=== PATIENT | female | born 1965 | race Caucasian/White ===

== ENCOUNTER 2023-01-14 08:27 | Outpatient (CLI) | payer OTHER, SELFPAY ==
[2023-01-14 09:37] LABS: Albumin* 4.4 g/dL (3.3-5.0)
[2023-01-14 09:38] LABS: Chloride* 107 mmol/L (96-114); Potassium* 3.9 mmol/L (3.6-5.1); Sodium* 143 mmol/L (135-149)
[2023-01-14 09:40] LABS: Carbon Dioxide* 28 mmol/L (20-32); Cholesterol* 281 mg/dL (90-199); Creatinine* 0.5 mg/dL (0.5-1.5); Estimated Glomerular Filt Rate 109 ml/min
[2023-01-14 09:41] LABS: Alanine Aminotransferase* 15 U/L (4-35); Alkaline Phosphatase* 74 U/L (40-150); Aspartate Amino Transferase* 18 U/L (12-35); Bilirubin Total* 0.5 mg/dL (0.1-1.5); Blood Urea Nitrogen* 22 mg/dL (7-30); Calcium* 9.3 mg/dL (8.4-10.6); Glucose* 113 mg/dL (60-115); HDL Cholesterol* 64 mg/dL (>=50); LDL Cholesterol Calculated 198 mg/dL (<100); Total Protein* 7.3 g/dL (6.0-8.3); Triglycerides* 95 mg/dL (40-149)
== END 2023-01-14 08:28 | disposition home or self-care (01) ==
PROVIDERS: PCP Family Medicine; Visit Provider Family Medicine
DX: R60.0 Localized edema (principal); E66.9 Obesity, unspecified; R53.83 Other fatigue; Z13.6 Encounter for screening for cardiovascular disorders
CPT/HCPCS: 80053; 80061; 84443

== ENCOUNTER 2023-01-23 06:43 | Outpatient (CLI) | payer OTHER, SELFPAY ==
--- NOTE | 2023-01-23 07:15 | CRLHL7_ITS ---
For Patients: As a result of the 21st Century Cures Act, medical imaging exams and procedure reports are released immediately into your electronic medical record. You may view this report before your referring provider. If you have questions, please contact your health care provider. Indication: Lower extremity edema, concern for venous insufficiency. Technique: Ultrasound of the bilateral lower extremity deep and superficial veins. Ultrasound performed using real-time mims scale imaging (B-mode 2D), color-flow Doppler and spectral analysis. Assessment of venous flow and competence was performed by Doppler spectral analysis and documented at exam specific sites. Venous insufficiency studies were performed in an upright position. Vein diameters were measured in millimeters (mm) and reflux times if present were measured in seconds by caliper method. Significant reflux defined as greater than 0.5 seconds for the superficial veins, greater than 0.75 seconds for perforators, and greater than 1.0 second for deep veins. Comparison: None available Findings: Bilateral common femoral, femoral, popliteal, and posterior tibial veins are patent and compressible. On the right, there is 2.6 seconds of reflux in the right proximal superficial femoral vein. Remainder of the veins are competent. On the left, there is 2.6 seconds of reflux in the left common femoral vein. No reflux in the proximal superficial femoral vein, but there is 1.7 seconds of reflux in the mid superficial femoral vein and 4.1 seconds of reflux in the distal superficial femoral vein. 1.7 seconds of reflux in the popliteal vein. Posterior tibial veins are competent. Greater saphenous and small saphenous veins are patent bilaterally. Right greater saphenous vein: Saphenofemoral junction: 10 mm, no reflux Proximal thigh: 3 mm, 1.5 seconds reflux Mid thigh: 3 mm, 1.6 seconds reflux Distal thigh: 3 mm, no reflux Proximal calf: 3 mm, 4.8 seconds reflux Mid calf: 1 mm, no reflux Distal calf: 2 mm, no reflux Right small saphenous vein: Saphenous femoral junction: 3.7 mm Proximal calf: Not well seen Mid calf: 5 mm, 2.3 seconds reflux Perforating veins are noted in the right mid calf measuring up to 4 mm which is competent and in the distal calf measuring up to 3 mm which is incompetent. This appeared to arise from the greater saphenous vein. Left greater saphenous vein: Saphenofemoral junction: 10 mm, no reflux Proximal thigh: 2 mm, 1.1 seconds reflux Mid thigh: 2 mm, 4.6 seconds reflux Distal thigh: 3 mm, no reflux Proximal calf: 2 mm, 2.7 seconds reflux Mid calf: 3 mm, 2.2 seconds reflux Distal calf: 3 mm, 3.9 seconds reflux Left small saphenous vein: Saphenopopliteal junction: 3 mm Proximal calf: 3.2 mm, no reflux Mid calf: 3.7 mm, no reflux Impression: 1. Right leg - No deep or superficial venous thrombus. - Reflux noted in proximal superficial femoral vein. Remainder of deep veins are competent on the right - Superficial venous reflux is noted in the proximal/mid thigh and proximal calf portions of the greater saphenous vein as well as in the mid calf portion of the small saphenous vein. 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 2. Left leg - No deep or superficial venous thrombus. - Deep venous reflux noted in left common femoral vein proximal/mid superficial femoral vein and popliteal vein. - Reflux noted in the left greater saphenous vein in the proximal/mid thigh as well at all levels in the calf. Left small saphenous vein is competent. Dictated by Ulysses Encarnacion MD @ 01/23/2023 1:39:44 PM (Electronically Signed)
== END 2023-01-23 06:44 | disposition home or self-care (01) ==
LOC: US 06:44
PROVIDERS: PCP Family Medicine; Visit Provider Family Medicine
DX: R60.0 Localized edema (principal); I87.1 Compression of vein
CPT/HCPCS: 93970

== ENCOUNTER 2023-03-26 11:37 | Outpatient (CLI) | payer OTHER, SELFPAY | END 2023-03-26 11:38 | disposition home or self-care (01) | LOC: OP CLINIC 11:38 | PROVIDERS: PCP Family Medicine; Visit Provider Surgery | DX: Z12.11 Encounter for screening for malignant neoplasm of colon (principal); K63.5 Polyp of colon; Z80.0 Family history of malignant neoplasm of digestive organs | CPT/HCPCS: 45385; 88305; 99153; J1200; J2250; J3010 ==

== ENCOUNTER 2023-04-03 07:41 | Outpatient (CLI) | payer OTHER, SELFPAY ==
--- NOTE | 2023-04-03 08:15 | CRLHL7_ITS ---
For Patients: As a result of the Century Cures Act, medical imaging exams and procedure reports are released immediately into your electronic medical record. You may view this report before your referring provider. If you have questions, please contact your health care provider. BILATERAL SCREENING MAMMOGRAM WITH COMPUTER-AIDED DETECTION AND TOMOSYNTHESIS TECHNIQUE: CC and MLO views were obtained. These mammographic images have been obtained using full-field digital technique. These mammographic images were interpreted with the benefit of computer-aided detection. Breast Tomosynthesis was used in this interpretation. COMPARISON FILM: Baseline. FINDINGS: There are scattered areas of fibroglandular density IMPRESSION: There is no radiographic evidence for malignancy. ASSESSMENT: BI-RADS Category 1: Negative RECOMMENDATION: Routine screening mammogram in 1 year. A lay language report of this examination will be provided to the patient. Ryan Lau M.D. Diagnostic Radiologist [email or web address] ALONZO/Dictated by: Ryan Lau MD @ 04/03/2023 9:03:00 AM (Electronically Signed)
== END 2023-04-03 07:42 | disposition home or self-care (01) ==
LOC: MAMMO 07:43
PROVIDERS: PCP Family Medicine; Visit Provider Family Medicine
DX: Z12.31 Encounter for screening mammogram for malignant neoplasm of breast (principal)
CPT/HCPCS: 77063; 77067

== ENCOUNTER 2023-05-25 07:38 | Outpatient (CLI) | payer OTHER, SELFPAY | END 2023-05-25 07:39 | disposition home or self-care (01) | LOC: NFLDREF 14:52 | PROVIDERS: PCP Family Medicine; Referring Provider Family Medicine; Visit Provider Family Medicine | DX: E78.5 Hyperlipidemia, unspecified (principal); E66.9 Obesity, unspecified; R73.9 Hyperglycemia, unspecified; R73.03 Prediabetes | CPT/HCPCS: 80061 ==